=== PATIENT | female | born 1975 | race Two or more races ===

== ENCOUNTER 2023-09-20 13:31 | Inpatient (IN) | payer BC ==
[~2023-09-20] VITALS: Ht 157.5 cm; Wt 83.3 kg
[2023-09-20 14:05] VITALS: BP 147/94; PULSE 81; RESP 18; O2SAT 99
[2023-09-20 14:52] LABS: Eosinophils # (auto) 0.1 10 ^3/uL (0-0.8); Hemoglobin 15.1 g/dL (12.2-16.2); Monocytes # (auto) 0.6 10 ^3/uL (0-1.3); Monocytes % (auto) 3.8 % (0.0-12.0); Neutrophils # (auto) 12.2 10 ^3/uL (1.6-8.6)
[2023-09-20 14:54] LABS: Basophils # (auto) 0 10 ^3/uL (0-0.2); Basophils % (auto) 0.3 % (0.0-2.0); Eosinophils % (auto) 0.6 % (0.0-7.0); Hematocrit 45.7 % (36.0-46.0); Lymphocytes % (auto) 18.6 % (10.0-50.0); Mean Corpuscular Hemoglobin 26.8 pg (28.0-32.0); Mean Corpuscular Hgb Conc. 32.9 g/dL (32.0-36.0); Mean Corpuscular Volume 81.3 fL (80.0-100.0); Neutrophils % (auto) 76.7 % (37.0-80.0); Red Blood Cells 5.63 10^6/uL (4.0-5.20); Red Cell Distribution Width 14.9 % (11.8-14.3); White Blood Cell 15.9 10^3/uL (4.4-10.8)
[2023-09-20 15:05] LABS: Alanine Aminotransferase 41 U/L (7-40); Alkaline Phosphatase 115 U/L (46-116); Anion Gap 7 (5-15); Carbon Dioxide 26 mmol/L (20-30); Chloride 104 mmol/L (98-107); Glucose 139 mg/dL (74-106); Lipase 65 U/L (12-53); Potassium 3.8 mmol/L (3.5-5.1); Sodium 137 mmol/L (136-145)
[2023-09-20 15:06] LABS: Albumin 4.6 g/dL (3.2-4.8); Aspartate Aminotransferase 85 U/L (13-40); BUN/Creatinine Ratio 14.3 (10.0-20.0); Bilirubin, Total 0.8 mg/dL (0.2-1.0); Blood Urea Nitrogen 10 mg/dL (9-23); Total Protein 7.8 g/dL (5.7-8.2)
[2023-09-20 15:30] LABS: Urine Bacteria NONE SEEN /hpf (None Seen); Urine Blood TRACE /uL (Negative); Urine Clarity Clear (Clear); Urine Color Colorless (Yellow); Urine Protein, UAD Negative (Negative); Urine Specific Gravity 1.014 (1.001-1.035); Urine Urobilinogen Normal (Negative); Urine WBC <1 /hpf (0 - 5)
[2023-09-20] MEDS ORDERED: cefTRIAXone 1GM/50ML D5W 50 ML IV ONE (15:30)
[2023-09-20] MEDS ORDERED: MORPHINE SULFATE INJ 2 MG/ml SYRG IV PRN (16:00)
[2023-09-20] MEDS ORDERED: HYDROcodone-ACET 5/325MG TAB PO PRN (16:00)
[2023-09-20] MEDS ORDERED: ACETAMINOPHEN 325 MG TAB PO PRN (16:00)
[2023-09-20] MEDS ORDERED: KETOROLAC TROMETH 30 MG/ML 1ML VIAL IV PRN (16:00)
[2023-09-20] MEDS ORDERED: ONDANSETRON HCL 4 MG/2 ML VIAL IV PRN (16:00)
[2023-09-20] MEDS ORDERED: SODIUM CHLORIDE 0.9% 1,000 ML IV SCH (16:00)
[2023-09-20] MEDS ORDERED: PANTOPRAZOLE 40 MG/10 ML VIAL INJ IV ONE (16:15)
[2023-09-20 16:27] LABS: Triglycerides 179 mg/dL (< 150)
[2023-09-20 16:28] LABS: LDL Cholesterol 146 mg/dL (< 100)
[2023-09-20 16:29] LABS: Cholesterol 224 mg/dL (< 200); HDL Cholesterol 59 mg/dL (40-59)
[2023-09-20] MEDS ORDERED: metroNIDAZOLE 500MG/100ML 100 ML IV SCH (22:00)
[2023-09-20] MEDS: metroNIDAZOLE 500MG/100ML 100 ML IV ONE (22:25)
[2023-09-20] MEDS: ONDANSETRON HCL 4 MG/2 ML VIAL IV ONE (22:25)
[2023-09-20] MEDS: MORPHINE SULFATE 4 MG/ML SYR/VIAL IV ONE (22:25)
[2023-09-20] MEDS: KETOROLAC TROMETH 30 MG/ML 1ML VIAL IV ONE ×2 (22:26)
[2023-09-20] MEDS: SODIUM CHLORIDE 0.9% 1,000 ML IV ONE ×2 (22:26→22:27)
[2023-09-21] MEDS ORDERED: cefTRIAXone 1GM/50ML D5W 50 ML IV SCH (09:00)
[2023-09-21] MEDS ORDERED: PANTOPRAZOLE 40 MG/10 ML VIAL INJ IV SCH (10:00)
[2023-09-21] MEDS ORDERED: ENOXAPARIN SOD 40 MG/0.4 ML SYRINGE SC SCH (10:00)
== END 2023-09-20 21:52 | disposition left against medical advice (07) | DRG 440 ==
LOC: ER 13:31 → OVERFLOW 16:02
PROVIDERS: ADMIT Nurse Practitioner Family; ATTEND Nurse Practitioner Family
DX: K85.90 Acute pancreatitis without necrosis or infection, unspecified (principal); E66.01 Morbid (severe) obesity due to excess calories; Z68.33 Body mass index [BMI] 33.0-33.9, adult
CPT/HCPCS: 36415; 74176; 80053; 80061; 81001; 83690; 84443; 85025; G0378